=== PATIENT | female | born 1950 | race African-American/Black ===

== ENCOUNTER → 2017-02-28 | Outpatient (CLI) | payer BC ==
--- NOTE | 2017-03-02 14:58 | RAD ---
DATE: 02/28/2017 EXAM: DIGITAL SCREEN BILAT W/CAD HISTORY: Routine screening COMPARISON: 01/16/2016 This study was interpreted with the benefit of Computerized Aided Detection (CAD). The breast parenchyma shows scattered fibroglandular densities. Breast parenchyma level B. FINDINGS: Benign-appearing lymph node type densities are present in the axillary tail regions. No new or enlarging breast densities are seen. No suspicious microcalcifications are evident. IMPRESSION: Stable mammograms without evidence of malignancy. BI-RADS CATEGORY: 2 BENIGN FINDING(S) RECOMMENDED FOLLOW-UP: 12M 12 MONTH FOLLOW-UP PQRS compliance statement: Patient information was entered into a reminder system with a target due date for the next mammogram. Mammography is a sensitive method for finding small breast cancers, but it does not detect them all and is not a substitute for careful clinical examination. A negative mammogram does not negate a clinically suspicious finding and should not result in delay in biopsying a clinically suspicious abnormality. "Our facility is accredited by the [employer] Mammography [employer]."
== END | disposition home or self-care (01) ==
LOC: MAMMO 07:57
PROVIDERS: ATTEND Family Medicine
DX: Z12.31 Encounter for screening mammogram for malignant neoplasm of breast (principal)
CPT/HCPCS: G0202; 77067

== ENCOUNTER → 2018-04-30 | Outpatient (CLI) | payer BC ==
--- NOTE | 2018-05-03 08:26 | RAD ---
DATE: 04/30/2018 4:30 PM EXAM: DIGITAL SCREEN BILAT W/CAD HISTORY: routine screening evaluation. COMPARISON: 02/28/2017, 01/16/2016, 05/08/2014, 03/16/2013 Bilateral full field craniocaudal and mediolateral oblique images were obtained using digital technique. This study was interpreted with the benefit of Computerized Aided Detection (CAD ). Breast Density: The breast parenchyma shows scattered fibroglandular densities. Breast parenchyma level B. FINDINGS: Benign calcifications are present. No suspicious masses, microcalcifications or architectural distortion is present to suggest malignancy in either breast. The visualized axillae are unremarkable. IMPRESSION: No mammographic evidence of malignancy. BI-RADS CATEGORY: 2 BENIGN FINDING(S) RECOMMENDED FOLLOW-UP: 12M 12 MONTH FOLLOW-UP Annual screening mammography is recommended, unless clinically indicated sooner based on symptoms or change in physical exam. PQRS compliance statement: Patient information was entered into a reminder system with a target due date 04/30/2019 for the next mammogram. Mammography is a sensitive method for finding small breast cancers, but it does not detect them all and is not a substitute for careful clinical examination. A negative mammogram does not negate a clinically suspicious finding and should not result in delay in biopsying a clinically suspicious abnormality. "Our facility is accredited by the [employer] Mammography [employer]." MTDD
== END | disposition home or self-care (01) ==
LOC: MAMMO 14:25
PROVIDERS: ATTEND Family Medicine
DX: Z12.31 Encounter for screening mammogram for malignant neoplasm of breast (principal)
CPT/HCPCS: 77067

== ENCOUNTER → 2019-05-10 | Outpatient (CLI) | payer BC ==
[2018-06-04 10:28] VITALS: BP 126/65
[~2019-05-10] MED LIST: AMLO5TAB10 PO; FLUO40CA9 PO; HYDR12.575 PO; RANI-376 PO
--- NOTE | 2019-05-10 16:58 | RAD ---
DATE: 05/10/2019 EXAM: DIGITAL SCREEN BILAT W/CAD HISTORY: Routine screening COMPARISON: 01/16/2016, 02/28/2017, 04/30/2018 mammographic exams This study was interpreted with the benefit of Computerized Aided Detection (CAD). Breast Density: SCATTERED The breast parenchyma shows scattered fibroglandular densities. Breast parenchyma level B. FINDINGS: No suspicious calcification or distortion. No new mass. Stable small masses. IMPRESSION: Stable BI-RADS CATEGORY: 1 NEGATIVE RECOMMENDED FOLLOW-UP: 12M 12 MONTH FOLLOW-UP PQRS compliance statement: Patient information was entered into a reminder system with a target due date for the next mammogram. Mammography is a sensitive method for finding small breast cancers, but it does not detect them all and is not a substitute for careful clinical examination. A negative mammogram does not negate a clinically suspicious finding and should not result in delay in biopsying a clinically suspicious abnormality. "Our facility is accredited by the [employer] Mammography [employer]."
== END | disposition home or self-care (01) ==
LOC: MAMMO 10:29
PROVIDERS: ATTEND Family Medicine
DX: Z12.31 Encounter for screening mammogram for malignant neoplasm of breast (principal)
CPT/HCPCS: 77067

== ENCOUNTER 2020-09-07 17:27 | Emergency (ER) | payer BC ==
[~2020-09-07] VITALS: Ht 147.3 cm; Wt 86.0 kg
[~2020-09-07 17:27] MED LIST changes: +AMLO-186 PO; -AMLO5TAB10 PO
--- NOTE | 2020-09-07 18:47 | PHYS DOC ---
Past Medical History Past Medical History: Anxiety, Depression, Hypertension Additional Past Medical Histor: COVID Past Surgical History: Appendectomy, , Hysterectomy Smoking Status: Never Smoker Alcohol Use: None General Adult EDM: Chief Complaint: LOWER EXT PAIN HPI: HPI: Patient is a 70 year old female who presents with 3 weeks of right lateral part of knee pain and back of knee pain that is worse when she is up and walking on it. She states it is throbbing. She rates her pain 8 out of 10 at this time. She states that she took (2) 81 mg aspirins today. She states she went to urgent care and they sent her here stating she need to be checked for blood clots. Patient denies numbness or tingling, coolness of the extremity, skin color change, shortness of breath, chest pain, dizziness, headache, vision change, focal weakness. Patient has a history of hypertension, depression, Tiffany, , anxiety, appendectomy, hysterectomy. Review of Systems: Review of Systems: Constitutional: Denies fever or chills. [] Eyes: Denies change in visual acuity. [] HENT: Denies nasal congestion or sore throat. [] Respiratory: Denies cough or shortness of breath. [] Cardiovascular: Denies chest pain or edema. [] GI: Denies abdominal pain, nausea, vomiting, bloody stools or diarrhea. [] : Denies dysuria. [] Musculoskeletal: Denies back pain. + Right knee joint pain. [] Integument: Denies rash. [] Neurologic: Denies headache, focal weakness or sensory changes. [] Endocrine: Denies polyuria or polydipsia. [] Lymphatic: Denies swollen glands. [] Psychiatric: Denies depression or anxiety. [] Heart Score: C/O Chest Pain: No Risk Factors: Risk Factors: DM, Current or recent (<one month) smoker, HTN, HLP, family history of CAD, obesity. Risk Scores: Score 0 - 3: 2.5% MACE over next 6 weeks - Discharge Home Score 4 - 6: 20.3% MACE over next 6 weeks - Admit for Clinical Observation Score 7 - 10: 72.7% MACE over next 6 weeks - Early Invasive Strategies Allergies: Allergies: Allergies Coded Allergies Type Severity Reaction Last Updated Verified doxazosin Allergy Intermediate 06/04/18 Yes lisinopril Allergy Intermediate cough 06/04/18 Yes Physical Exam: PE: Constitutional: Well developed, well nourished, no acute distress, non-toxic appearance. [] HENT: Normocephalic, atraumatic, bilateral external ears normal, oropharynx moist, no oral exudates, nose normal. [] Eyes: PERRLA, EOMI, conjunctiva normal, no discharge. [] Neck: Normal range of motion, no tenderness, supple, no stridor. [] Cardiovascular:Heart rate regular rhythm, no murmur [] Lungs & Thorax: Bilateral breath sounds clear to auscultation [] Abdomen: Bowel sounds normal, soft, no tenderness, no masses, no pulsatile masses. [] Skin: Warm, dry, no erythema, no rash. [] Back: No tenderness, no CVA tenderness. [] Extremities: No tenderness, no cyanosis, no clubbing, ROM intact, no edema. [] Neurologic: Alert and oriented X 3, normal motor function, normal sensory function, no focal deficits noted. [] Psychologic: Affect normal, judgement normal, mood normal. Normal physical exam [] Current Patient Data: Vital Signs: Vital Signs Date Time Temp Pulse Resp B/P (MAP) Pulse Ox O2 Delivery O2 Flow Rate FiO2 09/07/20 17:49 88 12 137/69 (91) 100 Room Air EKG: EKG: [] Radiology/Procedures: Radiology/Procedures: [] Impression: [facility] [address] [place], [place] [id number] IMAGING REPORT Signed PATIENT: JORGE OCHOA ACCOUNT: [id number] : 1950 LOCATION: ER AGE: 70 SEX: F EXAM STATUS: REG ER ORD. PHYSICIAN: MIKE YOO APRN REASON: pain behind knee PROCEDURE: VENOUS LOWER EXTREMITY RIGHT EXAMINATION: RIGHT LOWER EXTREMITY - UNILATERAL VENOUS DOPPLER. Technique: Ultrasound evaluation of the right lower extremity was performed from the groin to the upper calf with zepeda scale, spectral and color doppler evaluation. Indication: Leg swelling Comparison: None Findings: There is normal venous flow and compressibility of right common femoral vein, femoral vein, popliteal vein, and visualized proximal calf veins. Examination is mildly limited Impression: No evidence for deep vein thrombosis of right lower extremity from the level of the calf veins to the groins. Electronically signed by: Enrique Arreaga MD (09/07/2020 8:26 PM) [facility] DICTATED and SIGNED BY: ENRIQUE ARREAGA MD DATE: 09/07/[id number] 0 [facility] [address] [place] [address] IMAGING REPORT Signed PATIENT: JORGE OCHOA ACCOUNT: [id number] : 1950 LOCATION: ER AGE: 70 SEX: F EXAM STATUS: REG ER ORD. PHYSICIAN: MIKE YOO APRN REASON: pain PROCEDURE: KNEE RIGHT 4V EXAM: Right knee, 4 views HISTORY: Right knee pain. COMPARISON: None. FINDINGS: No fractures are identified. There is mild medial compartmental joint space adonis rowing with moderate osteophytosis. Alignment is normal. There is no joint effusion. IMPRESSION: 1. Mild to moderate medial compartment predominant tricompartmental osteoarthritis. Electronically signed by: Deidre Way MD (09/07/2020 7:37 PM) [facility] DI[facility]ATED and SIGNED BY: ROBIN WAY MD DATE: 09/07/200 0 Course & Med Decision Making: Course & Med Decision Making Pertinent Labs and Imaging studies reviewed. (See chart for details) See HPI. Alert and oriented x4. Ambulatory with a steady gait. Speaks in full clear sentences. No tenderness to the extremity. There is no swelling to the extremity. Skin is pink warm and dry. Pedal pulses strong and present. Cap refill less than [address] herself here today. She does have full range of motion of the knee joint but it is painful. No calf tenderness. [] Dragon Disclaimer: Dragon Disclaimer: This electronic medical record was generated, in whole or in part, using a voice recognition dictation system. Departure Departure Impression: Primary Impression: Knee pain, right Qualified Codes: M25.561 - Pain in right knee Additional Impression: Osteoarthritis Qualified Codes: M17.11 - Unilateral primary osteoarthritis, right knee Disposition: HOME / SELF CARE / HOMELESS Condition: STABLE Referrals: SURESH CHANEY MD (PCP) STACI MENDEZ MD Patient Instructions: Osteoarthritis Additional Instructions: Follow-up with primary care provider as soon as possible. I have also referred you to a orthopedic doctor. Use ice and heat to help with pain. Take medication as prescribed and with food. Remember these medications will make you sleepy so do not drive or drink any alcohol on top of them. Scripts Hydrocodone Bit/Acetaminophen (HYDROCODONE-APAP 5-325 ) 1 Tab Tablet 1 TAB PO PRN Q6HRS PRN for PAIN, #10 TAB 0 Refills Prov: MIKE YOO APRN 09/07/20 MIKE YOO APRN Sep 07, 2020 18:47
--- NOTE | 2020-09-07 19:39 | RAD ---
EXAM: Right knee, 4 views HISTORY: Right knee pain. COMPARISON: None. FINDINGS: No fractures are identified. There is mild medial compartmental joint space narrowing with moderate o steophytosis. Alignment is normal. There is no joint effusion. IMPRESSION: 1. Mild to moderate medial compartment predominant tricompartmental osteoarthritis. Electronically signed by: Deidre Way MD (09/07/2020 7:37 PM) [facility]
--- NOTE | 2020-09-07 20:29 | RAD ---
EXAMINATION: RIGHT LOWER EXTREMITY - UNILATERAL VENOUS DOPPLER. Technique: Ultrasound evaluation of the right lower extremity was performed from the groin to the upp er calf with zepeda scale, spectral and color doppler evaluation. Indication: Leg swelling Comparison: None Findings: There is normal venous flow and compressibility of right common femoral vein, femoral vein, popliteal vein, and visualized proximal calf veins. Examination is mildly limited Impression: No evidence for deep vein thrombosis of right lower extremity from the level of the calf veins to the groins. Electronically signed by: Enrique Burton MD (09/07/2020 8:26 PM) [facility]
[2020-09-07] MEDS ORDERED: HYDR-2761 PO (20:53)
[2020-09-07 21:13] VITALS: BP 130/70
== END 2020-09-07 21:10 | disposition home or self-care (01) ==
LOC: ER 17:27
DX: M17.11 Unilateral primary osteoarthritis, right knee (principal); I10 Essential (primary) hypertension; Z88.6 Allergy status to analgesic agent; Z88.8 Allergy status to other drugs, medicaments and biological substances
CPT/HCPCS: 73564; 93971; 99284-25

== ENCOUNTER → 2020-10-26 | Outpatient (CLI) | payer BC, MEDICARE ==
[~2020-10-26] MED LIST changes: +HYDR-2761 PO
--- NOTE | 2020-10-26 17:13 | KCIC ---
BILATERAL SCREENING MAMMOGRAM, 3-D History: Routine screening. Comparison: Bilateral mammogram May 10, 2019. Technique: MLO and CC digital tomosynthesis (3D) images obtained. Radiologist reviewed these images on dedicated workstation. Findings: Breast Tissue Density A : The breasts are almost entirely fatty. Mild right glandular nodularity is stable. Mild arterial calcifications are noted bilaterally. There are no dominant masses, suspicious microcalcifications or architectural distortion. IMPRESSION: No mammographic evidence of malignancy. Recommend routine screening. BI-RADS category 2: Benign findings. The images were reviewed with computer-aided detection. Patient information is entered into reminder system with a target due date [facility]. Mammography is the most sensitive method for finding small breast cancers, but it does not detect the m all and is not a substitute for careful clinical examination. A negative mammogram does not negate a clinically suspicious finding and should not result in delay in biopsying a clinically suspicious a bnormality. "Our facility is accredited by the [employer] Mammography [employer]." Electronically signed by: Dom Garza MD (10/26/2020 5:10 PM) [email or web address]
== END ==
LOC: KCIC MAMMO 12:24
PROVIDERS: ATTEND Family Medicine
DX: Z12.31 Encounter for screening mammogram for malignant neoplasm of breast (principal)
CPT/HCPCS: 77063; 77067